=== PATIENT | male | born 1945 ===

== ENCOUNTER 2018-03-14 15:53 | Emergency (ER) | payer MEDICARE, MEDICAID ==
--- NOTE | 2018-03-14 17:50 | ED PDOC ---
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 Patient has had pain since his toenails were clipped a few days ago. No ass ociated fever or chills. He currently lives in [facility] and was sent via ambulance to emergency room today. Past Medical History Reviewed: Historical Data, Nursing Documentation, Vital Signs Vital Signs: Last Vital Signs Temp 98.2 F 03/14/18 16:14 Pulse 70 03/14/18 16:14 Resp 18 03/14/18 16:14 BP 130/80 03/14/18 16:14 Pulse Ox 99 03/14/18 16:14 - Medical History PMH: CVA, HTN - Family History Family History: States: No Known Family Hx - Living Arrangements Living Arrangements: Custodial/Assist Lvng - Social History Current smoker - smoking cessation education provided: No Alcohol: None Drugs: Denies - Home Medications Home Medications: Ambulatory Orders Medication Instructions Recorded Acetaminophen [Tylenol] 3,650 mg PO Q4 PRN 03/14/18 Aspirin [Ecotrin] 81 mg PO DAILY 03/14/18 Brimonidine Tartrate/Timolol 1 drop BOTHEYES BID 03/14/18 [Combigan 0.2%-0.5% Eye Drops] Cetirizine HCl [All Day Allergy] 10 mg PO HS 03/14/18 Dorzolamide HCl/Pf [Dorzolamide 2% 1 drop BOTHEYES BID 03/14/18 Eye Drop] Famotidine [Pepcid] 20 mg PO DAILY 03/14/18 Gabapentin [Neurontin] 100 mg PO HS 03/14/18 Isosorbide Mononitrate [Imdur] 60 mg PO DAILY 03/14/18 Latanoprost/Pf [Latanoprost 0.005% 1 drop BOTHEYES HS 03/14/18 Eye Drop] Metoprolol Tartrate [Lopressor] 25 mg PO DAILY 03/14/18 Montelukast [Singulair] 10 mg PO DAILY 03/14/18 Nifedipine [Adalat cc] 90 mg PO DAILY 03/14/18 Potassium Chloride [K-Dur 20] 20 meq PO DAILY 03/14/18 hydrALAZINE [hydralazine 50 mg PO DAILY 03/14/18 Hydrochloride] - Allergies Allergies/Adverse Reactions: Allergies Allergy/AdvReac Type Severity Reaction Status Date / Time No Known Allergies Allergy Verified 03/14/18 16:14 Wells Criteria for PE - Wells Criteria for Pulmonary Embolism Clinical Signs and Symptoms of DVT: No P.E is #1 Diagnosis, or Equally Likely: No Heart Rate >100: No Immobilization at least 3 days;Surgery previous 4 weeks: No Previous, objectively diagnosed PE or DVT: No Hemoptysis: No Malignancy w/treatment within 6 months, or palliative: No Total Score: 0 Review of Systems ROS Statement: Except As Marked, All Systems Reviewed And Found Negative Constitutional: Negative for: Fever Musculoskeletal: Positive for: Foot Pain (left) Physical Exam - Reviewed Nursing Documentation Reviewed: Yes Vital Signs Reviewed: Yes - Physical Exam Appears: Positive for: Well, Non-toxic, No Acute Distress Skin: Positive for: Normal Color. Negative for: Rash Eye Exam: Positive for: Normal appearance Cardiovascular/Chest: Positive for: Regular Rate, Rhythm Respiratory: Positive for: Normal Breath Sounds. Negative for: Wheezing, Respiratory Distress Extremity: Positive for: Normal ROM Neurologic/Psych: Positive for: Alert - Laboratory Results Result Diagrams: 03/14/18 18:51 03/14/18 18:51 - ECG O2 Sat by Pulse Oximetry: 99 Pulse Ox Interpretation: Normal - Other Rad Left foot x-ray X-Ray: Interpreted by Me, Viewed By Me X-Ray Interpretation: no acute finding Medical Decision Making Medical Decision Makin72 y/o male with pain to left great toe Plan: X-ray left foot CBC CMP PO tylenol Podiatry consult 7:43 pm: Case was d/w Dr. Jiménez, podiatry resident who will come to bedside to see patient. Disposition - Clinical Impression Clinical Impression: Left foot pain - Patient ED Disposition Is Patient to be Admitted: Transfer of Care - Disposition Disposition: Transfer of Care Disposition Time: 20:00 Condition: FAIR Forms: [employer] (Persian) Patient Signed Over To: Kailey Valles Handoff Comments: Signed out pending podiatry consult and final disposition Results - Lab Results Lab Results: 03/14/18 03/14/18 18:51 18:51 WBC 7.4 RBC 5.05 Hgb 16.6 Hct 49.2 MCV 97.6 H MCH 32.9 H MCHC 33.7 RDW 13.3 Plt Count 140 MPV 11.1 Neut % (Auto) 57.4 Lymph % (Auto) 27.4 [place] % (Auto) 9.3 Eos % (Auto) 5.1 H Baso % (Auto) 0.8 Neut # (Auto) 4.2 Lymph # (Auto) 2.0 [place] # (Auto) 0.7 Eos # (Auto) 0.4 Baso # (Auto) 0.1 Sodium 141 Potassium 4.2 Chloride 106 Carbon Dioxide 26 Anion Gap 13 BUN 19 Creatinine 0.5 L Est GFR ( Amer) > 60 Est GFR (Non-Af Amer) > 60 Random Glucose 176 H Calcium 9.0 Total Bilirubin 0.6 AST 33 ALT 37 Alkaline Phosphatase 101 Total Protein 7.7 Albumin 3.9 Globulin 3.8 Albumin/Globulin Ratio 1.0
[2018-03-14 19:00] LABS: BASO # 0.1 K/uL (0.0-0.2); BASO % 0.8 % (0.0-2.0); EOS # 0.4 K/uL (0.0-0.7); EOS % 5.1 % (0.0-4.0); HEMOGLOBIN 16.6 g/dL (12.0-18.0); LYMPH % 27.4 % (20.0-40.0); MEAN CELL VOLUME 97.6 fl (80.0-94.0); MEAN CORPUSCULAR HEMOGLOBIN 32.9 pg (27.0-31.0); MEAN CORPUSCULAR HGB CONC 33.7 g/dL (33.0-37.0); MEAN PLATELET VOLUME 11.1 fl (7.2-11.7); MONO # 0.7 K/uL (0.0-0.8); MONO % 9.3 % (0.0-10.0); NEUT # 4.2 K/uL (1.8-7.0); NEUT % 57.4 % (50.0-75.0); RBC 5.05 Mil/uL (4.40-5.90); RED CELL DISTRIBUTION WIDTH 13.3 % (11.5-14.5); WHITE BLOOD COUNT 7.4 K/uL (4.8-10.8)
[2018-03-14 19:11] LABS: ALBUMIN 3.9 g/dL (3.5-5.0); ALT/SGPT 37 U/L (21-72); AST/SGOT 33 U/L (17-59); BLOOD UREA NITROGEN 19 mg/dl (9-20); GFR NON-AFRICAN AMERICAN > 60
--- NOTE | 2018-03-14 21:04 | ED PDOC ---
- Laboratory Results Result Diagrams: 03/14/18 18:51 03/14/18 18:51 - ECG O2 Sat by Pulse Oximetry: 99 - Progress ED Course And Treament: Case endorsed to speech writer from Kirsten MCGINNIS pending podiatry eval 20:45 Patient evaluated by podiatry resident on-call; recommends NSAIDs/tylenol at this time and f/up as needed Patient requires no further intervention in the ED and is stable for discharge at this time Disposition - Clinical Impression Clinical Impression: Left foot pain - POA Present On Arrival: None - Disposition Disposition: Routine/Home Disposition Time: 21:03 Condition: STABLE Instructions: Bunion Print Language: GREENLANDIC
[2018-03-14 23:00] VITALS: BP 140/92; PULSE 77; RESP 17; TEMP 98.1; O2SAT 98
--- NOTE | 2018-03-15 01:33 | CP.PCM.CON ---
History of Present Illness - History of Present Illness History of Present Illness: Podiatry consult note for Dr. 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 Patient has had pain since his toenails were clipped a few days ago. No associated fever or chills. [facility] to emergency room today. Patient is unable to give history. Denies f/n/v/sob. Pmhx: unable to obtain Pshx: unable to obtain Allergies: unable to obtain Past Patient History - Past Social History Alcohol: None Drugs: Denies - CARDIAC Hx Hypertension: Yes - PSYCHIATRIC Hx Substance Use: No Meds Allergies/Adverse Reactions: Allergies Allergy/AdvReac Type Severity Reaction Status Date / Time No Known Allergies Allergy Verified 03/14/18 16:14 Physical Exam - Constitutional Appears: Well, Non-toxic, No Acute Distress - Head Exam Head Exam: ATRAUMATIC, NORMOCEPHALIC - Extremities Exam Additional comments: Left lower extremity exam: Vascular: DP/PT 2/4, CFT <3 secs x5, TG warm to warm ( no increased temperature noted), minimal erythema at the medial aspect of the first MPJ, no pitting edema noted. Derm: no open lesions, minimal erythema medial 1st MPJ secondary to rubbing of shoe and mild irritation, no clinical signs of infection Ortho: no pain on palpation around the hallux, no pain on palpation at the 1st MPJ, no pain with ROM of the first MPJ Neuro: grossly intact Results - Vital Signs Recent Vital Signs: Last Vital Signs Temp 98.1 F 03/14/18 22:59 Pulse 77 03/14/18 22:59 Resp 17 03/14/18 22:59 BP 140/92 H 03/14/18 22:59 Pulse Ox 98 03/14/18 22:59 - Labs Result Diagrams: 03/14/18 18:51 03/14/18 18:51 Labs: Laboratory Results - last 24 hr 03/14/18 10 18:51 18:51 WBC 7.4 RBC 5.05 Hgb 16.6 Hct 49.2 MCV 97.6 H MCH 32.9 H MCHC 33.7 RDW 13.3 Plt Count 140 MPV 11.1 Neut % (Auto) 57.4 Lymph % (Auto) 27.4 [place] % (Auto) 9.3 Eos % (Auto) 5.1 H Baso % (Auto) 0.8 Neut # (Auto) 4.2 Lymph # (Auto) 2.0 [place] # (Auto) 0.7 Eos # (Auto) 0.4 Baso # (Auto) 0.1 Sodium 141 Potassium 4.2 Chloride 106 Carbon Dioxide 26 Anion Gap 13 BUN 19 Creatinine 0.5 L Est GFR ( Amer) > 60 Est GFR (Non-Af Amer) > 60 Random Glucose 176 H Calcium 9.0 Total Bilirubin 0.6 AST 33 ALT 37 Alkaline Phosphatase 101 Total Protein 7.7 Albumin 3.9 Globulin 3.8 Albumin/Globulin Ratio 1.0 Assessment & Plan - Assessment and Plan (Free Text) Assessment: 72 yo male patient with pmhx of CVA presents to the ED with pain in the left hallux and medial aspect of first MPJ Plan: Patient seen and evaluated History and plan discussed in detail with the attending, Dr Chapin X-rays reviewed; no osseous abnormality or fracture noted Labs reviewed: absent leukocytosis Vitals reviewed; no fever Patient advised to wear wider shoes Patient to take tylenol or ibuprofen for the pain prn Patient advised possible gouty attack; repeat labs in 4 weeks Thank you for the consult.
--- NOTE | 2018-03-15 09:08 | RAD ---
Date of service: 03/14/2018 PROCEDURE: Left Foot Radiographs. HISTORY: left great toe pain COMPARISON: None. FINDINGS: BONES: Diffuse osteopenia suggests relatively extensive osteoporosis. Clinically correlate. No displaced fracture or focal destructive lesion identified. JOINTS: The foot appears to be in chronic plantar flexion. No dislocation or subluxation appreciable. Moderate degenerative joint disease seen diffusely. SOFT TISSUES: Normal. OTHER FINDINGS: None. IMPRESSION: Chronic plantar flexion. Advanced osteo tenia may indicate severe osteoporosis. Clinically correlate. No displaced fracture appreciable throughout. Moderate degenerative joint is identified diffusely.
== END 2018-03-14 23:00 | disposition home or self-care (01) ==
LOC: H.ER 15:53
DX: M79.672 Pain in left foot (principal); Z86.73 Personal history of transient ischemic attack (TIA), and cerebral infarction without residual deficits; Z79.899 Other long term (current) drug therapy; I10 Essential (primary) hypertension